=== PATIENT | male | born 1985 | race African-American/Black ===

== ENCOUNTER 2017-04-09 17:20 | Emergency (ER) | payer OTHER, BC ==
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
--- NOTE | 2017-04-10 08:49 | CT ---
CT cervical spine Technique: Multiple axial sections were obtained from above C1 inferiorly to the mid T2 level. Reconstructed sagittal and coronal images were reviewed. Findings: Cyst identified within C6 which is felt to be incidental. Minimal disc space narrowing is noted at C5-C6 with slight anterior spurring as well as very minimal posterior ridging. Other disc spaces and vertebral body heights are maintained. Visualized portions of the mastoid and middle ear cavities are clear. Posterior skull base is intact. Vertebral bodies and posterior arches are intact with no fracture being seen. No bony central or bony neural foraminal stenosis is seen. Slightly abnormal cervical curvature is seen. Minimal degenerative change seen within the uncovertebral joints at C5-C6. Impression: 1. Mild degenerative change at C5-C6 as noted above. Incidental cyst within the C6 vertebral body. 2. Slightly abnormal cervical curvature which may relate to degenerative change at C5-C6 versus muscle spasm. 3. No acute bony abnormality is identified on CT study of the cervical spine. Diagnostic code #2 I agree with preliminary report issued by [facility] ([facility] report finalized on 04/09/17, 8:27 PM Central Time)
== END 2017-04-09 20:47 | disposition home or self-care (01) ==
LOC: JD.ED 17:20
DX: M54.2 Cervicalgia (principal); M25.561 Pain in right knee; V43.52XA Car driver injured in collision with other type car in traffic accident, initial encounter; Y92.410 Unspecified street and highway as the place of occurrence of the external cause
CPT/HCPCS: 72125; 72125-26; 99284; 99284-25

== ENCOUNTER 2017-05-04 14:03 | Emergency (ER) | payer BC ==
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
== END 2017-05-04 14:50 | disposition home or self-care (01) ==
LOC: JD.ED 14:03
DX: M62.838 Other muscle spasm (principal); M54.2 Cervicalgia
CPT/HCPCS: 99283; 99284

== ENCOUNTER 2017-05-06 12:05 | Emergency (ER) | payer BC ==
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
== END 2017-05-06 13:02 | disposition home or self-care (01) ==
LOC: JD.ED 12:05
DX: M54.2 Cervicalgia (principal)
CPT/HCPCS: 99282; 99283